=== PATIENT | female | born 1945 ===

== ENCOUNTER 2017-03-10 12:44 | Emergency (ER) | payer MEDICARE, OTHER ==
[2017-03-10 13:03] VITALS: BMI 27.4
[2017-03-10 13:05] VITALS: O2SAT 100
[2017-03-10 14:04] LABS: BASO % 0.4 % (0.0-2.0); EOS # 0.1 K/uL (0.0-0.7); EOS % 0.9 % (0.0-4.0); HEMATOCRIT 37.9 % (34.0-47.0); LYMPH # 1.3 K/uL (1.0-4.3); LYMPH % 16.1 % (20.0-40.0); MEAN CELL VOLUME 88.1 fL (81.0-99.0); MEAN CORPUSCULAR HEMOGLOBIN 29.2 pg (27.0-31.0); MEAN CORPUSCULAR HGB CONC 33.2 g/dL (33.0-37.0); MEAN PLATELET VOLUME 8.1 fL (7.2-11.7); MONO # 0.4 K/uL (0.0-0.8); MONO % 4.7 % (0.0-10.0); RED CELL DISTRIBUTION WIDTH 13.8 % (11.5-14.5); WHITE BLOOD COUNT 8.3 K/uL (4.8-10.8)
[2017-03-10 14:25] LABS: RBC URINE 7 /hpf (0-3); URINE BILIRUBIN NEGATIVE (NEGATIVE); URINE COLOR Colorless (YELLOW); URINE GLUCOSE (UA) NORMAL (Normal); URINE KETONE NEGATIVE (NEGATIVE); URINE PROTEIN NEGATIVE (NEGATIVE); URINE UROBILINOGEN NORMAL mg/dL (0.2-1.0); WBC URINE 6 /hpf (0-5)
[2017-03-10 14:27] LABS: ALKALINE PHOSPHATASE 73 U/L (38-126); ALT/SGPT 24 U/L (9-52); AST/SGOT 29 U/L (14-36); BILIRUBIN,TOTAL 0.3 mg/dL (0.2-1.3); BLOOD UREA NITROGEN 18 mg/dL (7-17); CALCIUM 9.2 mg/dl (8.6-10.4); CARBON DIOXIDE 28 mmol/L (22-30); CHLORIDE 104 mmol/L (98-107); GFR AFRICAN-AMERICAN > 60; GLUCOSE,RANDOM 105 mg/dL (65-105); POTASSIUM 4.4 mmol/L (3.6-5.2); SODIUM 140 mmol/L (132-148); TOTAL PROTEIN 8.9 g/dL (6.3-8.3)
[2017-03-10 14:33] LABS: URINE BLOOD 1+ (NEGATIVE); URINE LEUKOCYTE ESTERASE 1+ Leu/uL (Negative)
[2017-03-10] MEDS ORDERED: Iodixanol 320 mg/ml 150 ml Bottle IV ONE (14:41)
--- NOTE | 2017-03-10 15:48 | CT ---
PROCEDURE: CT Abdomen and Pelvis with contrast HISTORY: epigastric pain s/p fall COMPARISON: None. TECHNIQUE: Contrast dose: Visipaque 320, 100 cc Radiation dose: Total exam DLP = 332.00 mGy-cm. This CT exam was performed using one or more of the following dose reduction techniques: Automated exposure control, adjustment of the mA and/or kV according to patient size, and/or use of iterative reconstruction technique. FINDINGS: LOWER THORAX: Unremarkable. LIVER: Unremarkable. No gross lesion or ductal dilatation. GALLBLADDER AND BILE DUCTS: Unremarkable. PANCREAS: Unremarkable. No gross lesion or ductal dilatation. SPLEEN: Unremarkable. ADRENALS: Unremarkable. No mass. KIDNEYS AND URETERS: Unremarkable. No hydronephrosis. No solid mass. VASCULATURE: Unremarkable. No aortic aneurysm. BOWEL: The stomach is collapsed but otherwise unremarkable appearing. No obstruction. No gross mural thickening. APPENDIX: Normal appendix. PERITONEUM: No mesenteric edema or ascites is identified. No hemoperitoneum or free intraperitoneal gas. There is a partially calcified lymph node or granuloma at the left lower quadrant mesenteric measure 1.1 x 1.4 cm. LYMPH NODES: Unremarkable. No enlarged lymph nodes. BLADDER: Unremarkable. REPRODUCTIVE: Unremarkable. BONES: There is an anterior wedge compression fracture of L1 which is severe with moderate retropulsion of the superior endplate likely causing a limited stenosis at T12-L1 disc interspace level. Age of this fracture indeterminate. There is no prior comparison available. OTHER FINDINGS: None. IMPRESSION: 1. No evidence of visceral rupture grossly appreciable throughout the abdomen or pelvis. No hemoperitoneum or free intrarenal gas. 2. Severe anterior wedge compression fracture L1 with probable mild T12-L1 stenosis resulting of the central canal. The age of this finding is indeterminate. 3. The remainder of the examination is unremarkable as imaged.
[2017-03-10 16:41] VITALS: BP 163/82; PULSE 60; RESP 20; TEMP 98
--- NOTE | 2017-03-10 16:52 | C.PDOC ---
History Of Present Illness 71 y/o female presents to the ED c/o epigastric pain s/p fall and mild thoracic back pain. The patient states she slipped on the steps and fell on her back. The patient denies LOC, SOB, chest pain, fever dizzines, and swelling. - HPI Chief Complaint (Nursing): Trauma History Per: Patient History/Exam Limitations: no limitations Onset/Duration Of Symptoms: Hrs Additional History Per: Patient - Fall Fall:Prior To Injury: Slipped Past Medical History Reviewed: Historical Data, Nursing Documentation, Vital Signs Vital Signs: Last Vital Signs Temp 98.0 F 03/10/17 16:40 Pulse 60 03/10/17 16:40 Resp 20 03/10/17 16:40 BP 163/82 H 03/10/17 16:40 Pulse Ox 100 03/10/17 17:07 - Medical History PMH: Diabetes, HTN, Hypercholesterolemia, Malignancy (left breast CA) Surgical History: No Surg Hx - [facility] Procedures TETANUS TOXOID ADMINIST (03/21/13) Family History: States: No Known Family Hx - Social History Hx Tobacco Use: No Hx Alcohol Use: No Hx Substance Use: No - Immunization History Hx Tetanus Toxoid Vaccination: Yes Hx Influenza Vaccination: No Hx Pneumococcal Vaccination: No Review Of Systems Except As Marked, All Systems Reviewed And Found Negative. (thoracic) Constitutional: Negative for: Fever, Chills Cardiovascular: Negative for: Chest Pain Respiratory: Negative for: Cough, Shortness of Breath Gastrointestinal: Positive for: Abdominal Pain (epigastric ). Negative for: Nausea, Vomiting, Constipation Musculoskeletal: Positive for: Back Pain. Negative for: Neck Pain, Shoulder Pain Skin: Negative for: Rash Physical Exam - Physical Exam Appears: Non-toxic, No Acute Distress Skin: Warm, Dry Head: Atraumatic, Normacephalic Eye(s): bilateral: PERRL Oral Mucosa: Moist Neck: Supple Chest: Symmetrical Cardiovascular: Rhythm Regular Respiratory: Normal Breath Sounds, No Rales, No Rhonchi, No Wheezing Gastrointestinal/Abdominal: Soft, No Tenderness, No Guarding, No Rebound Back: Other (diffused tenderness in the t6-t8 area and mildline scaring in L1- L2 area) Extremity: Normal ROM, Capillary Refill (2<sec.) Neurological/Psych: Oriented x3, Normal Speech, Normal Cognition, Other ( complete and intact ) Gait: Steady ED Course And Treatment - Laboratory Results Result Diagrams: 03/10/17 13:59 03/10/17 13:59 O2 Sat by Pulse Oximetry: 100 (RA) Progress Note: Upon reassesment, the patient is aferbile. The patient is comfortable and no longer feels the eigastric and thoracic back pain. The patient is advised to have a 1-2 day follow up with her PMD for a further evaluation. Medical Decision Making Medical Decision Making: UA, IV fluids, blood work, abdominal and pelvis ct scan were administered. Disposition - Disposition Referrals: Curt Terry, [Non-Staff] - Disposition: HOME/ ROUTINE Disposition Time: 15:50 Condition: IMPROVED Additional Instructions: Thank you for letting us take care of you today. The emergency medical care you received today was directed at your acute symptoms. If you were prescribed any medication, please fill it and take as directed. It may take several days for your symptoms to resolve. Return to the Emergency Department if your symptoms worsen, do not improve, or if you have any other problems. Please contact your doctor or call one of the physicians/clinics you have been referred to that are listed on the Patient Visit Information form that is included in your discharge packet. Bring any paperwork you were given at discharge with you along with any medications you are taking to your follow up visit. Our treatment cannot replace ongoing medical care by a primary care provider (PCP) outside of the emergency department. Thank you for allowing the [facility] team to be part of your care today. Follow up with your doctor in 2-3 days for re-evaluation and further management. Instructions: Abdominal Pain (ED) Forms: [employer] (Filipino) Print Language: IRISH - Clinical Impression Clinical Impression: Abdominal pain - Scribe Statement The provider has reviewed the documentation as recorded by the Jenniferibe Che Mello All medical record entries made by the Jenniferiblee ann were at my direction and personally dictated by me. I have reviewed the chart and agree that the record accurately reflects my personal performance of the history, physical exam, medical decision making, and the department course for this patient. I have also personally directed, reviewed, and agree with the discharge instructions and disposition.
== END 2017-03-10 16:54 | disposition home or self-care (01) ==
LOC: C.ER 12:44
DX: R10.9 Unspecified abdominal pain (principal); E11.9 Type 2 diabetes mellitus without complications; E78.00 Pure hypercholesterolemia, unspecified; I10 Essential (primary) hypertension; Z85.3 Personal history of malignant neoplasm of breast
CPT/HCPCS: 74177; 80053; 81001; 83690; 85025; 99285; Q9967